=== PATIENT | male | born 1940 | race Caucasian/White ===

== ENCOUNTER 2019-01-12 17:21 | Emergency (ER) | payer MEDICARE, OTHER, SELFPAY ==
[2019-01-12 17:35] VITALS: BP 175/91; PULSE 63; RESP 15; TEMP 36.3; O2SAT 99; BMI 34.0
[2019-01-12 17:57] LABS: Bacteria Urine None Seen
--- NOTE | 2019-01-12 18:08 | ED_ITS ---
HPI - Male Genitourinary General Chief complaint: Urogenital-Male Stated complaint: Thinks having a kidney stone attack Time Seen by Provider: 01/12/19 18:07 Source: patient Mode of arrival: ambulatory Limitations: no limitations History of Present Illness HPI Narrative: 78-year-old male here for evaluation of left-sided pain which he states is a kidney stone. Patient states that several hours prior to arrival he was driving from [facility] back to the local area when he started to have left-sided testicular pain. He stated that it radiated up into his abdomen and is now dislocated and his abdomen. He has had 6 prior kidney stones in the past. He states that this feels very much like prior kidney stone however not as intense. No other associated symptoms. Is having some urinary hesitancy. Has passed all of his prior kidney stones without intervention. Related Data Previous Rx's Medication Instructions Recorded ondansetron 4 mg PO Q6-8H PRN #14 tab 01/12/19 oxycodone-acetaminophen [Percocet] 1 tab PO Q4-6H PRN #10 tab 01/12/19 Allergies Allergy/AdvReac Type Severity Reaction Status Date / Time No Known Drug Allergies Allergy Verified 01/12/19 17:41 Review of Systems Constitutional Denies fever(s) Cardiovascular Denies chest pain and Denies dyspnea Respiratory Denies dyspnea Gastrointestinal Gastrointestinal: Reports abdominal pain Genitourinary Reports urinary frequency and Reports urinary hesitancy Comments: Left-sided testicular pain is now resolved Integumentary/Breasts Denies rash Hematologic/Lymphatic Denies easy bleeding and Denies easy bruising [facility] Medical History Kidney stones (Acute) Social History Smoking Status: Unknown if ever smoked Social History Smoking Status: Unknown if ever smoked Exam Initial Vital Signs Initial Vital Signs: Vital Signs Temperature 97.4 F L 01/12/19 17:35 Pulse Rate 63 01/12/19 17:35 Respiratory Rate 15 01/12/19 17:35 Blood Pressure 175/91 H 01/12/19 17:35 Pulse Oximetry 99 01/12/19 17:35 Const General: cooperative, comfortable, well developed, well groomed and No acute distress Orientation: alert and awake [facility] Head: normal to inspection and normocephalic Resp Effort & Inspection: normal respiratory effort Auscultation: clear to auscultation bilaterally Cardio Rate: regular rate Rhythm: regular rhythm Pulses: radial pulses present GI Inspection: non-distended Palpation: soft, No firm and No tender Back/Spine/Pelvis Back: No CVA tenderness Skin Lesions: no lesions Rashes: no rashes Neuro General: alert and awake Cognition: normal cognition Speech: speech normal Motor: muscle tone normal throughout Sensory Exam: no sensory deficits noted Extrem General: normal to inspection and capillary refill normal Psych Appearance: grossly normal and well kempt Course Orders Ordered: ED Orders 01/12/19 17:34 Urine Microscopic Stat 01/12/19 18:28 Basic Metabolic Panel Stat Vital Signs - 8 hr 01/12/19 17:35 01/12/19 19:02 Temperature 97.4 F L Pulse Rate 63 69 Respiratory Rate 15 21 Blood Pressure 175/91 H Blood Pressure [Left Arm] 159/79 H Pulse Oximetry 99 98 MDM - Male Genitourinary Lab Data Attestation: I reviewed the patient's lab results. Result diagrams: 01/12/19 18:28 Lab Results 01/12/19 01/12/19 Range/Units 17:34 18:28 Sodium 138 (137-145) mmol/L Potassium 3.9 (3.4-5.1) mmol/L Chloride 102 (98-107) mmol/L Carbon Dioxide 26 (22-32) mmol/L BUN 36 H (9-20) mg/dL Creatinine 1.40 H (0.66-1.25) mg/dL Estimated GFR 48.8 L (>60) mL/min BUN/Creatinine Ratio 25.7 H (6-22) Glucose 96 (80-110) mg/dL Calcium 10.3 H (8.4-10.2) mg/dL Urine RBC 5-10/hpf H (0-5/HPF) Urine WBC 0-1/hpf (0-5/HPF) Ur Squamous Epith Cells 1-5 /hpf (0-5/HPF) Amorphous Sediment 1+ Urine Bacteria None seen (None) Urine Mucus 1+ H (Negative) Ur Culture Indicated? Cult not indicated Urine Dip Bedside Urine Glucose Negative Bedside Urine Bilirubin - Negative Bedside Urine Ketone - Negative Urine Specific Hubert 1.020 Bedside Urine Occult Blood +++ Bedside Urine pH 6.0 Bedside Urine Protein +/- 15 Bedside Urine Urobilinogen - Negative Bedside Urine Nitrite - Negative Bedside Urine Leukocytes - Negative Esterase MDM Narrative Medical decision making narrative: Patient's creatinine is slightly elevated however he states that he has been told it has been elevated in the past. Has no signs of an infection in his urine on the urinalysis. After multiple times questioning the patient he states that his symptoms today feel very much like prior kidney stones however not as intense. Because this will hold on a CT scan for now on presumed that his symptoms are renal colic. We did discuss that not doing a CT scan we could potentially be missing other issues such as diverticulitis or other surgical pathology however patient once again stated this felt very much like his prior kidney stones. He did not want any medication here in the ER. Will send home with symptom control. He was given strict return precautions. He has a benign abdominal exam. Skin is negative for any rashes would be concerning for zoster. Patient was also given information about obtaining a primary provider here in the area. He expressed understanding and agreement with plan. Discharge Plan Departure Patient Disposition: Home Clinical Impression: Renal colic on left side Discharge Date/Time: 01/12/19 19:09 Interventions: ED Discharge Assessment Last Done: 01/12/19 19:09 Instructions: DI for Kidney Stones Activity Restrictions/Additional Instructions: if any of your symptoms worsen or change like we discussed you do need to be re- valuated. You can contact the health payroll human resources assistant at [phone] to help with finding a primary provider in the area. Take your medications as directed. Return to the ER for any new or worsening symptoms. Prescriptions: New oxycodone-acetaminophen [Percocet] 5-325 mg tablet 1 tab PO Q4-6H PRN (Reason: pain) Qty: 10 RF: 0 ondansetron 4 mg tablet,disintegrating 4 mg PO Q6-8H PRN (Reason: nausea and vomiting) Qty: 14 RF: 0
[2019-01-12 18:14] LABS: RBC Urine 5-10/HPF (0-5/HPF)
[2019-01-12 18:15] LABS: Amorphous Sediment Urine 1+; Culture Indicated Urine Cult Not Indicated; Mucus Urine 1+ (Negative); Squamous Epithelial Cell Urine 1-5 /HPF (0-5/HPF); WBC Urine 0-1/HPF (0-5/HPF)
[2019-01-12 18:45] LABS: BUN Creatinine Ratio 25.7 (6-22); Blood Urea Nitrogen 36 mg/dL (9-20); Calcium 10.3 mg/dL (8.4-10.2); Carbon Dioxide 26 mmol/L (22-32); Chloride 102 mmol/L (98-107); Estimated Glomerular Filt Rate 48.8 mL/min (>60); Glucose 96 mg/dL (80-110); HEMOLYSIS < 15 (0-50); Potassium 3.9 mmol/L (3.4-5.1); Sodium 138 mmol/L (137-145)
[2019-01-12 19:02] VITALS: BP 159/79; PULSE 69; RESP 21; O2SAT 98
== END 2019-01-12 19:09 | disposition home or self-care (01) ==
PROVIDERS: Emergency Medicine; Emergency Provider Emergency Medicine
DX: N23 Unspecified renal colic (principal)
CPT/HCPCS: 36415; 80048; 81003; 81015; 99282; 99283